=== PATIENT | female | born 1990 | race Caucasian/White ===

== ENCOUNTER 2025-01-13 13:58 | Outpatient (CLI) | payer OTHER | END 2025-01-13 13:59 | disposition home or self-care (01) | LOC: SCSRAD 13:58 | PROVIDERS: ATTEND Family Medicine | DX: M54.2 Cervicalgia (principal); M54.50 Low back pain, unspecified; M51.86 Other intervertebral disc disorders, lumbar region; M51.87 Other intervertebral disc disorders, lumbosacral region; M41.9 Scoliosis, unspecified | CPT/HCPCS: 36415; 72052; 72120; 80053; 80061; 81001; 84443; 85025 ==